=== PATIENT | male | born 1970 ===

== ENCOUNTER 2021-04-30 17:24 | Emergency (ER) | payer MEDICAID, OTHER ==
[~2021-04-30] VITALS: Ht 165.1 cm; Wt 90.7 kg
[2021-04-30] MEDS ORDERED: ACETAMINOPHEN 325 MG TAB PO ONE (19:45)
[2021-04-30 21:45] VITALS: BP 150/84
[2021-04-30] MEDS ORDERED: BACITRACIN TOP OINT 1 UD PKG TOP ONE (23:15)
== END 2021-05-01 00:03 | disposition home or self-care (01) ==
LOC: EDBD 17:24 → ER 17:24
DX: S50.811A Abrasion of right forearm, initial encounter (principal); M54.2 Cervicalgia; R07.89 Other chest pain; V43.52XA Car driver injured in collision with other type car in traffic accident, initial encounter; Y93.89 Activity, other specified; Y92.410 Unspecified street and highway as the place of occurrence of the external cause; Y99.8 Other external cause status
CPT/HCPCS: 70450; 72125; 73090